=== PATIENT | female | born 1975 | race Two or more races ===

== ENCOUNTER 2017-02-17 22:18 | Emergency (ER) | payer OTHER ==
[~2017-02-17] VITALS: Ht 167.6 cm; Wt 77.1 kg
[2017-02-17 22:21] VITALS: BP 139/94
[2017-02-17] MEDS ORDERED: diphenhydrAMINE HCL 50 MG/ML VIAL IV STA (22:34)
[2017-02-17] MEDS ORDERED: METOCLOPRAMIDE HCL 10 MG/2 ML VIAL ONE (22:34)
[2017-02-17] MEDS ORDERED: diphenhydrAMINE HCL 50 MG/ML VIAL ONE (22:35)
[2017-02-17] MEDS ORDERED: IV SET PRIMARY 1 EA INFUS.SET MC ONE (22:35)
[2017-02-17] MEDS ORDERED: IV NS 0.9% 1,000 ML ONE (22:35)
[2017-02-17] MEDS ORDERED: METOCLOPRAMIDE HCL 10 MG/2 ML VIAL IV ONE (23:00)
[2017-02-17] MEDS ORDERED: IV NS 0.9% 1,000 ML BAG IV ONE (23:00)
== END 2017-02-17 23:33 | disposition home or self-care (01) ==
LOC: ER 22:22
DX: G44.209 Tension-type headache, unspecified, not intractable (principal); I10 Essential (primary) hypertension
CPT/HCPCS: 96360; 96374; 96375; 99284; A4606; J1200; J2765; J7030; Z7610; G0168

== ENCOUNTER 2017-10-12 19:11 | Emergency (ER) | payer OTHER ==
[~2017-10-12] VITALS: Ht 157.5 cm; Wt 113.4 kg
--- NOTE | 2017-10-12 19:24 | NUR ---
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 PT AOX3 RR EVEN AND UNLABORED. NO SOB NOTED. NAD NOTED. NO NVD AT THIS TIME. PT GOWNED AND PLACED ON MONITOR. PASCUAL MEAD AT BEDSIDE FOR EVAL. PT DENIES CP OR SOB AT THIS TIME.
[2017-10-12] MEDS ORDERED: LORAZEPAM 1 MG TABLET PO ONE (19:30)
[2017-10-12] MEDS ORDERED: ACETAMINOPHEN 325 MG TABLET PO ONE (19:30)
[2017-10-12] MEDS ORDERED: KETOROLAC TROMETHAMINE INJ 60 MG/2 ML VIAL IM ONE (19:30)
[2017-10-12] MEDS ORDERED: LORAZEPAM 1 MG TABLET ONE (19:46)
[2017-10-12] MEDS ORDERED: KETOROLAC TROMETHAMINE INJ 30 MG/ML VIAL ONE (19:46)
[2017-10-12] MEDS ORDERED: ACETAMINOPHEN ES 500 MG TABLET ONE (19:47)
--- NOTE | 2017-10-12 20:30 | NUR ---
PAC MEAD AT BEDSIDE SPEAKING TO PT REGARDING RESULTS.
--- NOTE | 2017-10-12 20:34 | NUR ---
Patient discharged to home in stable condition. Written and verbal after care instructions given. Patient verbalizes understanding of instruction. ambulatory with a steady gait. instructed pt not to drive. pt verbalize understanding.
[2017-10-12 20:37] VITALS: BP 139/78
== END 2017-10-12 20:38 | disposition home or self-care (01) ==
LOC: ER 19:12
DX: G44.209 Tension-type headache, unspecified, not intractable (principal); F41.9 Anxiety disorder, unspecified; I10 Essential (primary) hypertension
CPT/HCPCS: A4606; J1885; Z7610

== ENCOUNTER 2018-04-21 19:31 | Emergency (ER) | payer OTHER ==
[~2018-04-21] VITALS: Ht 165.1 cm; Wt 108.9 kg
--- NOTE | 2018-04-21 21:40 | NUR ---
TAFFY PULLER AT BEDSIDE FOR BLOOD DRAW.
[2018-04-21 22:04] LABS: BASOPHILS # (AUTO) 0.1 /CMM (0.0-0.2); BASOPHILS % (AUTO) 0.6 % (0.0-2.0); EOSINOPHILS % (AUTO) 1.5 % (0.0-6.0); HEMATOCRIT 45 % (33-45); HEMOGLOBIN 14.7 g/dL (11.5-14.8); LYMPHOCYTES # (AUTO) 2.4 /CMM (0.8-4.8); LYMPHOCYTES % (AUTO) 23.6 % (20.0-44.0); MEAN CORPUSCULAR HEMOGLOBIN 29 PG (26.0-33.0); MEAN CORPUSCULAR HGB CONC 33 g/dl (31.0-36.0); MEAN CORPUSCULAR VOLUME 89 fL (82-100); MONOCYTES # (AUTO) 0.9 /CMM (0.1-1.30); MONOCYTES % (AUTO) 8.6 % (2.0-12.0); NEUTROPHILS # (AUTO) 6.8 /CMM (1.8-8.9); NEUTROPHILS % (AUTO) 65.7 % (43.0-81.0); PLATELET COUNT (AUTO) 356 /CMM (150-450); RDW COEFFICIENT OF VARIATION 14.2 (11.5-15.0); RED BLOOD CELL COUNT(AUTO) 5.02 MIL/uL (4.0-5.2); WHITE BLOOD COUNT (AUTO) 10.3 K/uL (4.3-11.0)
[2018-04-21 22:16] LABS: CALCIUM, SERUM 9.6 mg/dL (8.5-10.1); CARBON DIOXIDE 23 mmol/L (21-32); CHLORIDE 100 mmol/L (98-107); CREATININE 0.8 mg/dL (0.6-1.3); GLUCOSE 99 mg/dL (74-106); POTASSIUM 3.7 mmol/L (3.5-5.1); SODIUM SERUM 135 mmol/L (136-145); UREA NITROGEN, BLOOD 10 mg/dL (7-18)
[2018-04-21 22:18] LABS: APPEARANCE,URINE CLEAR (CLEAR); BILIRUBIN,URINE NEGATIVE (NEGATIVE); BLOOD, URINE 2+ Ery/uL (NEGATIVE); COLOR,URINE YELLOW (YELLOW); KETONES,URINE NEGATIVE (NEGATIVE); LEUKOCYTE ESTERASE ,URINE NEGATIVE (NEGATIVE); NITRITE, URINE NEGATIVE (NEGATIVE); PROTEIN,URINE NEGATIVE (NEGATIVE); UGLUCOSE NEGATIVE (NEGATIVE); UROBILINOGEN,URINE 0.2 EU/dL (0.2)
[2018-04-21 22:23] LABS: INR 0.91 (0.87-1.13)
[2018-04-21 22:24] LABS: TROPONIN I < 0.017 ng/mL (0.00-0.056)
[2018-04-21 22:29] LABS: ALANINE AMINOTRANSFERASE 124 U/L (12-78); ALBUMIN 4.1 g/dL (3.4-5.0); ALKALINE PHOSPHATASE 101 U/L (46-116); ASPARTATE AMINOTRANSFERASE 54 U/L (15-37); B-TYPE NATRIURETIC PEPTIDE 75 PG/ML (0-125); BILIRUBIN,DIRECT 0.1 mg/dL (0.0-0.2); BILIRUBIN,TOTAL 0.4 mg/dL (0.2-1.0); LIPASE 98 U/L (73-393); TOTAL PROTEIN, SERUM 8.5 g/dL (6.4-8.2)
[2018-04-21] MEDS ORDERED: ONDANSETRON HCL/PF 4 MG/2 ML VIAL IVP ONE (22:30)
[2018-04-21 22:34] LABS: BACTERIA,URINE None seen /HPF (None Seen); MUCUS,URINE Few /LPF (None Seen); SQUAMOUS EPITHELIAL CELL,UR Few /HPF (None Seen); WBC,URINE 0-2 /HPF (0-3)
[2018-04-21] MEDS ORDERED: IBUPROFEN 600 MG TABLET PO ONE ×2 (23:12→23:30)
[2018-04-21] MEDS ORDERED: ONDANSETRON 4 MG TAB.RAPDIS ONE (23:12)
--- NOTE | 2018-04-21 23:30 | NUR ---
Addendum notes: Medication given: Zofran Oral; 4 mg - subligual given as ordered by the ED physician
[2018-04-22 00:08] VITALS: BP 144/82
== END 2018-04-22 00:10 | disposition home or self-care (01) ==
LOC: ER 19:32
DX: R60.0 Localized edema (principal); M25.561 Pain in right knee; M25.562 Pain in left knee; I10 Essential (primary) hypertension; Z98.890 Other specified postprocedural states
CPT/HCPCS: 36415; 80048; 80076; 81001; 83690; 83880; 84484; 84703; 85025; 85730; 87086; 93005; 93970; 99285; A4606; Q0162; Z7610; 81000-TC

== ENCOUNTER 2018-12-21 19:07 | Emergency (ER) | payer OTHER ==
[~2018-12-21] VITALS: Ht 162.6 cm; Wt 99.8 kg
[2018-12-21 19:44] VITALS: BP 154/99
[2018-12-21] MEDS ORDERED: AMOX/CLAVULANATE 875 MG TABLET PO ONE (20:30)
[2018-12-21] MEDS ORDERED: HYDROCODONE/APAP 5/325MG 1 EACH TABLET PO ONE (20:30)
[2018-12-21] MEDS ORDERED: AMOX/CLAVULANATE 875 MG TABLET ONE (20:34)
[2018-12-21] MEDS ORDERED: HYDROCODONE/APAP 5/325MG 1 EACH TABLET ONE (20:34)
== END 2018-12-21 20:39 | disposition home or self-care (01) ==
LOC: ER 19:14
DX: K08.89 Other specified disorders of teeth and supporting structures (principal); I10 Essential (primary) hypertension

== ENCOUNTER 2024-05-28 00:51 | Emergency (ER) | payer OTHER ==
[~2024-05-28] VITALS: Ht 167.6 cm; Wt 83.9 kg
[2024-05-28] MEDS ORDERED: diphenhydrAMINE HCL ELIX 25 MG/10 ML UDC ONE (01:15)
[2024-05-28] MEDS ORDERED: predniSONE 20 MG TABLET ONE (01:15)
[2024-05-28] MEDS ORDERED: FAMOTIDINE (20 MG) 20 MG TABLET ONE (01:15)
[2024-05-28] MEDS: predniSONE 50 MG TABLET PO ONE (01:22)
[2024-05-28] MEDS: FAMOTIDINE (20 MG) 20 MG TABLET PO ONE (01:22)
[2024-05-28] MEDS: diphenhydrAMINE HCL ELIX 25 MG/10 ML UDC PO ONE (01:22)
[2024-05-28] MEDS ORDERED: PRED50TA PO (01:33)
[2024-05-28 01:49] VITALS: BP 116/72; TEMP 98; O2SAT 99
== END 2024-05-28 01:49 | disposition home or self-care (01) ==
LOC: ER 00:53
DX: T78.40XA Allergy, unspecified, initial encounter (principal); I10 Essential (primary) hypertension; X58.XXXA Exposure to other specified factors, initial encounter
CPT/HCPCS: 99284; Q0163; J7512

== ENCOUNTER 2024-06-12 21:26 | Emergency (ER) | payer OTHER ==
[~2024-06-12] VITALS: Ht 162.6 cm; Wt 72.6 kg
[~2024-06-12 21:26] MED LIST: PRED50TA PO
[2024-06-12 22:39] VITALS: BP 151/85; TEMP 98.1; O2SAT 98
[2024-06-12] MEDS ORDERED: TRIA15OI9 TP (22:49)
[2024-06-12] MEDS ORDERED: predniSONE 20 MG TABLET ONE (22:55)
[2024-06-12] MEDS: predniSONE 20 MG TABLET PO ONE (22:59)
== END 2024-06-12 23:03 | disposition home or self-care (01) ==
LOC: ER 21:31
DX: S60.462A Insect bite (nonvenomous) of right middle finger, initial encounter (principal); I10 Essential (primary) hypertension; W57.XXXA Bitten or stung by nonvenomous insect and other nonvenomous arthropods, initial encounter; Y93.89 Activity, other specified; Y92.89 Other specified places as the place of occurrence of the external cause; Y99.8 Other external cause status
CPT/HCPCS: 99283; J7512